=== PATIENT | male | born 1960 | race Caucasian/White ===

== ENCOUNTER 2019-01-25 06:45 | Day surgery (SDC) | payer BC ==
[~2019-01-25] VITALS: Ht 190.5 cm; Wt 78.9 kg
[~2019-01-25 06:45] MED LIST: KEPPRA XR500 MG PO; ONE DAILY COMP1 EAC1 PO; VITAMIN D2000 UNI1 PO
[2019-01-25] MEDS ORDERED: CELECOXIB200 MG PO (09:39)
[2019-01-25] MEDS ORDERED: HYDROCODON-ACE1 EA11 PO (09:39)
--- NOTE | 2019-01-25 09:59 | NUR ---
01/25/19 0959 Andra Silva 0940 PT ARRIVED DROWSY AND DENIES PAIN AND NAUSEA. 0956 REPORT TO ZULEMA QUEEN. PT RESTING IN BED, DENIES PAIN AND NAUSEA. RESP EVEN AND UNLABROED. 58 HOB INCREASED AND PT SIPPING WATER.
--- NOTE | 2019-01-25 10:12 | NUR ---
ICED WATER, PUDDING AND CRACKERS ARE GIVEN. PATIENT'S BROTHER IS AT THE BEDSIDE. CALL LIGHT IS WITHIN REACH.
--- NOTE | 2019-01-25 11:46 | NUR ---
LE 1110: PATIENT IS UP TO THE BATHROOM WITH RN STANDBY. PATIENT AMBULATES WELL, REPORTS SUCCESSFUL VOID AND REQUESTS DISCHARGE HOME. DISCHARGE INSTRUCTIONS ARE GIVEN IN PRESENCE OF PATIENT'S BROTHER AND BOTH VERBALIZE UNDERSTANDING. PATIENT IS DRESSING SELF IN PRESENCE OF BROTHER. PATIENT DISCHARGED WEARING SLING WITH ICE BAG IN PLACE AFTER TRANSFERRING HIMSELF WELL TO THE WHEELCHAIR.
--- NOTE | 2019-01-25 19:18 | OR ---
[facility] [address], [place] [address] Signed DATE OF OPERATION: 01/25/2019 SURGEON: Krzysztof Valdovinos MD PREOPERATIVE DIAGNOSIS: Dupuytren's disease, left hand. POSTOPERATIVE DIAGNOSIS: Dupuytren's disease, left hand. PROCEDURE PERFORMED: Partial fasciectomy, left small and ring rays. ASSISTANTS: 1. Rhae Wells PA-C. 2. ESTIVEN López. Rhea was present and critical for all portions of procedure. ANESTHESIA: General with axillary block. TOURNIQUET TIME: 59 minutes. 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 The contractures were disabling and he wished to proceed. Risks, benefits, and alternatives of operative treatment were discussed with him. He elected to proceed. DESCRIPTION OF PROCEDURE: Once consent was obtained, he was taken to the operating room. After adequate anesthesia, he was left on the operating room cart and a well-padded proximal arm tourniquet was placed. The arm was then prepped and draped in a standard sterile fashion, exsanguinated using Esmarch bandage. Tourniquet inflated to 200 mmHg. Standard transverse incision was made 1st across the distal palmar crease, carried through the skin. Care was taken to dissect the Dupuytren's cords off the underlying skin proximally and distally. Deep dissection was then undertaken. The cord to the small finger was extensive and did involve the neurovascular bundle. Under loupe magnification, we carefully dissected the neurovascular bundle off the bottom of the Electronically Signed By: KRZYSZTOF VALDOVINOS MD 01/25/19 1918 PATIENT NAME: ISAI OLSON OPERATIVE REPORT DATE OF : 62 REPORT #: [id number] PHYSICIAN: KRZYSZTOF VALDOVINOS MD PCP: TAYLOR LOZANO PA-C REPORT IS CONFIDENTIAL AND NOT TO BE RELEASED WITHOUT AUTHORIZATION [facility] [address], [place] [address] Signed cord and removed it proximally. This was then pulled down into the wound and the undersurface dissection was carried distally. The cord to the small finger was then transected and the entire palmar fascial component was removed, again dissecting it free of the neurovascular bundle underneath the palmar fascia. No vessel or nerve injury was noted. The ring finger really did not have any extensive cord down to the PIP joint and there was no PIP contracture, however, the small finger did. An oblique incision was then made in the proximal phalanx, carried through the skin and subcutaneous tissue. All bleeders were cauterized as we went with bipolar cautery. The underlying cord was dissected free of its terminal extension to the radial aspect of the phalanx. This was then dissected proximally back underneath the skin flap and was removed in total. Again, the neurovascular bundle was carefully dissected free of the spiral bands using loupe magnification. Once we had completed the partial fasciectomy, the tourniquet was released and bleeders were cauterized. The phalangeal incision was then closed using a running 3-0 Monocryl. McCkusum open-palm technique was then employed for the palm. This was then packed with saline-soaked sponge and over-dressed with Kerlix gauze and an ulnar gutter splint in extension. He tolerated the procedure well. All sponge, needle, and instrument counts were correct. Krzysztof Valdovinos MD BA/AINSLEY /[id number] Copies: ~ Electronically Signed By: KRZYSZTOF VALDOVINOS MD 01/25/19 1918 PATIENT NAME: ISAI OLSON OPERATIVE REPORT DATE OF : 62 REPORT #: [id number] PHYSICIAN: KRZYSZTOF VALDOVINOS MD PCP: TAYLOR LOZANO PA-C REPORT IS CONFIDENTIAL AND NOT TO BE RELEASED WITHOUT AUTHORIZATION
== END 2019-01-25 11:25 | disposition home or self-care (01) ==
LOC: OPS 06:45 → DS 06:45 → OPS 08:15 → DS 09:15 → OPS 11:25
PROVIDERS: Specialist
PROC: 0LN80ZZ Release Left Hand Tendon, Open Approach (ICD-10-PCS; 2019-01-25)
PROC: 0LN80ZZ Release Left Hand Tendon, Open Approach (ICD-10-PCS; 2019-01-25)
PROC: 0JNK0ZZ Release Left Hand Subcutaneous Tissue and Fascia, Open Approach (ICD-10-PCS; principal; 2019-01-25 08:15)
DX: M72.0 Palmar fascial fibromatosis [Dupuytren] (principal); Z88.8 Allergy status to other drugs, medicaments and biological substances; Z79.899 Other long term (current) drug therapy
CPT/HCPCS: 64417; 76942; J0690; J1100; J2405; J2704; J2795; J3010; J7120

== ENCOUNTER 2023-05-11 18:27 | Emergency (ER) | payer OTHER ==
[~2023-05-11] VITALS: Ht 190.5 cm; Wt 65.8 kg
[~2023-05-11 18:27] MED LIST changes: +CELECOXIB200 MG PO; +HYDROCODON-ACE1 EA11 PO
[2023-05-11] MEDS ORDERED: CYCLOBENZAPRINE10 MG PO (18:41)
[2023-05-11] MEDS ORDERED: LYRICA75 MG PO (20:15)
[2023-05-11] MEDS ORDERED: BACLOFEN10 MG PO (20:15)
[2023-05-11 20:27] VITALS: BP 117/67
== END 2023-05-11 20:28 | disposition home or self-care (01) ==
LOC: ED 18:27
DX: G62.9 Polyneuropathy, unspecified (principal); Z88.8 Allergy status to other drugs, medicaments and biological substances
CPT/HCPCS: 99283